=== PATIENT | male | born 1940 | race Caucasian/White ===

== ENCOUNTER 2016-09-24 16:35 | Emergency (ER) | payer MEDICARE, OTHER ==
[2016-09-24 16:45] VITALS: BP 134/70; PULSE 83; TEMP 97.7; BMI 22.8
--- NOTE | 2016-09-24 19:23 | PDOC ---
History of Present Illness - General Chief Complaint: Pain, Acute Stated Complaint: LT LEG PAIN Time Seen by Provider: 09/24/16 17:10 History Source: Patient Exam Limitations: No Limitations - History of Present Illness Initial Comments: 09/24/16 19:18 RIGHT THIGH PAIN POST FALL 2 WEEKS AGO Occurred: reports: last week Lower Extremity Pain Location: left: leg Past History - Past Medical History Allergies/Adverse Reactions: Allergies Allergy/AdvReac Type Severity Reaction Status Date / Time No Known Allergies Allergy Verified 09/24/16 16:46 Home Medications: Ambulatory Orders Atorvastatin Ca [Lipitor] 10 mg PO HS #0 tablet 07/10/12 Lisinopril [Prinivil] 20 mg PO HS #0 tablet 07/10/12 Cefpodoxime Proxetil [Vantin] 200 mg PO BID #14 tablet 06/14/13 Metoprolol Tartrate [Lopressor -] 50 mg PO BID 06/14/13 Phenazopyridine HCl [Pyridium] 100 mg PO TID #6 tablet 06/14/13 Silodosin [Rapaflo] 8 mg PO 06/14/13 Tamsulosin HCl 0.4 mg PO DAILY 06/14/13 Warfarin Na [Coumadin] 4 mg PO 06/14/13 Anemia: No Asthma: No Cancer: No Cardiac Disorders: Yes (ATRIAL FIBRILLATION, DIFIB) CVA: No COPD: No CHF: No Dementia: No Diabetes: No GI Disorders: No Disorders: No HTN: No Hypercholesterolemia: No Liver Disease: No Seizures: No Thyroid Disease: No - Surgical History Abdominal Surgery: No Appendectomy: No Cardiac Surgery: Yes (ABLASION) Cholecystectomy: No Lung Surgery: No Neurologic Surgery: No Orthopedic Surgery: Yes (REPAIRS OF RT 3RD/4TH FINGERS) - Psycho/Social/Smoking Cessation Hx Suicidal Ideation: No Smoking History: Never smoked Have you smoked in the past 12 months: No Hx Alcohol Use: Yes (OCCASIONALLY) Drug/Substance Use Hx: No Substance Use Type: None Hx Substance Use Treatment: No Review of Systems - Review of Systems Constitutional: No: Symptoms Reported, Chills, Fever, Malaise HEENTM: No: Symptoms Reported Respiratory: No: Symptoms reported, Cough Cardiac (ROS): No: Symptoms Reported ABD/GI: No: Symptoms Reported Musculoskeletal: Yes: Other (from HIP AND KNEE, NO TENDERNESS; TENDER MID THIGH) . No: Joint Pain, Joint Swelling *Physical Exam - Vital Signs Last Vital Signs Temp Pulse Resp BP Pulse Ox 97.7 F 83 18 134/70 96 09/24/16 16:42 09/24/16 16:42 09/24/16 16:42 09/24/16 16:42 09/24/16 16:42 - Physical Exam General Appearance: Yes: Appropriately Dressed. No: Apparent Distress HEENT: positive: TMs Normal, Pharynx Normal Neck: positive: Supple. negative: Tender, Rigid, Lymphadenopathy (R), Lymphadenopathy (L) Respiratory/Chest: positive: Lungs Clear Musculoskeletal: positive: Other (TENDER TO MID THIGH; NO REDNESS; ) Integumentary: negative: Erythema Neurologic: positive: Fully Oriented, Alert ED Treatment Course - RADIOLOGY Radiology Studies Ordered: Category Date Time Status FEMUR-LEFT [RAD] Stat Radiology 09/24/16 17:24 Taken DUPLEX VASCUL US-1 LEG [US] Stat Ultrasound 09/24/16 17:24 Taken Medical Decision Making - Medical Decision Making 09/24/16 19:22 XRAY/ US= NEGATIVE; WILL TX WITH SHORT COURSE 375 N[address]ROSYN; FOLLOW UP 1 WEEK *DC/Admit/Observation/Transfer Diagnosis at time of Disposition: Leg pain, central Qualifiers: Laterality: left Qualified Code(s): M79.605 - Pain in left leg - Discharge Dispostion Disposition: HOME Condition at time of disposition: Worsened Admit: No - Patient Instructions Additional Instructions: PLEASE SEE DR LLOYD 1 WEEK IF NO BETTER
--- NOTE | 2016-09-25 09:08 | PDOC ---
Patient Follow-up (Call Back) - Post ED Follow - Up Disposition at time of original discharge: HOME Reason for Call Back: Radiology (Received call from Dr. Cordova that Pelvis/L femur imaging from 09/24 shows subcapital femur fracture. Pt was discharged with normal imaging. Reached patient directly, made aware of radiology finding: told not to apply weight to affected leg, to return to ER/hospital for likely admission/surgery. Told to call 911 if he needs assistance getting here while non weight bearing. Pt understands urgency and will return to hospital.)
== END 2016-09-24 19:36 | disposition home or self-care (01) ==
LOC: JERFT 16:35
DX: S72.012A Unspecified intracapsular fracture of left femur, initial encounter for closed fracture (principal); W19.XXXA Unspecified fall, initial encounter; Y93.89 Activity, other specified; Y92.89 Other specified places as the place of occurrence of the external cause; I48.91 Unspecified atrial fibrillation; Z79.01 Long term (current) use of anticoagulants
CPT/HCPCS: 73552-TC-LT; 93971-TC; 99281-25

== ENCOUNTER 2016-09-25 10:05 | Inpatient (IN) | payer MEDICARE, OTHER ==
--- NOTE | 2016-09-25 10:52 | PDOC ---
History of Present Illness <Jas Bower - Last Filed: 09/25/16 11:24> - General History Source: Patient Exam Limitations: No Limitations - History of Present Illness Initial Comments: 09/25/16 10:57 76 year old male with pmhx of ablation who presents to the ED with left hip pain s/p fall 2 weeks ago. Patient was seen in [facility] yesterday and was discharged. Patient was contacted today after abnormal XRAY findings. Patient reports pain to the left hip and knee when he puts weight on that leg. <Randi Nolan - Last Filed: 09/25/16 11:40> - General Chief Complaint: Injury Stated Complaint: LT HIP PAIN Time Seen by Provider: 09/25/16 10:23 Past History - Past Medical History Anemia: No Asthma: No Cancer: No Cardiac Disorders: Yes (ATRIAL FIBRILLATION, DIFIB) CVA: No COPD: No CHF: No Dementia: No Diabetes: No GI Disorders: No Disorders: No HTN: No Hypercholesterolemia: No Liver Disease: No Seizures: No Thyroid Disease: No Other medical history: cardioversion - Surgical History Abdominal Surgery: No Appendectomy: No Cardiac Surgery: Yes (ABLAtION) Cholecystectomy: No Lung Surgery: No Neurologic Surgery: No Orthopedic Surgery: Yes (REPAIRS OF RT 3RD/4TH FINGERS) - Psycho/Social/Smoking Cessation Hx Anxiety: No Suicidal Ideation: No Smoking History: Never smoked Have you smoked in the past 12 months: No Information on smoking cessation initiated: No Hx Alcohol Use: No Drug/Substance Use Hx: No Substance Use Type: None Hx Substance Use Treatment: No <Jas Bower - Last Filed: 09/25/16 11:24> <Randi Nolan - Last Filed: 09/25/16 11:40> - Past Medical History Allergies/Adverse Reactions: Allergies Allergy/AdvReac Type Severity Reaction Status Date / Time No Known Allergies Allergy Verified 09/25/16 10:08 Home Medications: Ambulatory Orders NK [No Known Home Medication] 09/25/16 Review of Systems - Review of Systems Able to Perform ROS?: Yes Comments:: 09/25/16 10:57 General: Absent: fever, chills Musculoskeletal: left hip pain, left knee pain <Randi Nolan - Last Filed: 09/25/16 11:40> *Physical Exam - Vital Signs Last Vital Signs Temp Pulse Resp BP Pulse Ox 98.6 F 72 18 133/75 100 09/25/16 10:09 09/25/16 10:09 09/25/16 10:09 09/25/16 10:09 09/25/16 10:09 - Physical Exam General Appearance: Yes: Nourished, Appropriately Dressed. No: Apparent Distress HEENT: positive: EOMI, LENARD, Normal ENT Inspection Neck: positive: Supple. negative: Tender Respiratory/Chest: positive: Lungs Clear, Normal Breath Sounds. negative: Chest Tender, Respiratory Distress Cardiovascular: positive: Regular Rhythm, Regular Rate Gastrointestinal/Abdominal: positive: Normal Bowel Sounds, Soft. negative: Tender Musculoskeletal: positive: Normal Inspection. negative: CVA Tenderness, Vertebral Tenderness Extremity: positive: Normal Capillary Refill, Normal Inspection, Other (TENDER LT HIP (ROM NOT EXAMINED DUE TO DX ) Integumentary: positive: Normal Color. negative: Rash Neurologic: positive: Fully Oriented, Alert, Normal Mood/Affect, Normal Response , Motor Strength 5/5 <Jas Bower - Last Filed: 09/25/16 11:24> - Vital Signs Last Vital Signs Temp Pulse Resp BP Pulse Ox 98.6 F 72 18 133/75 100 09/25/16 10:09 09/25/16 10:09 09/25/16 10:09 09/25/16 10:09 09/25/16 10:09 <Randi Nolan - Last Filed: 09/25/16 11:40> Heart Score/ECG Review #1 09/25/16 11:38 ECG was reviewed by Dr. Arias Impression: normal sinus rhythm left aaxis deviation incomplete right bundle branch block septal infarct vent rate: 72 bpm <Randi Nolan - Last Filed: 09/25/16 11:40> ED Treatment Course - LABORATORY CBC & Chemistry Diagram: 09/25/16 11:15 09/25/16 10:49 <Jas Bower - Last Filed: 09/25/16 11:24> - LABORATORY CBC & Chemistry Diagram: 09/25/16 11:15 09/25/16 10:49 - RADIOLOGY Radiology Studies Ordered: 09/25/16 11:27 TYPE/EXAM: RAD/FEMUR-LEFT AP of the pelvis. 4 views of the left femur. Left transverse, impacted subcapital fracture of the left femoral neck with disruption of the medial, lateral cortex is seen. The left femoral head maintains normal relationship to the acetabulum. Osteoarthritis of the left knee with narrowing of the medial, lateral joint compartments. Impression. Transverse impacted subcapital left femoral neck fracture with disruption of the medial and lateral cortex. Findings were discussed with the ED department September 25, 2016 at 9:00 AM <Randi Nolan - Last Filed: 09/25/16 11:40> Medical Decision Making - Medical Decision Making 09/25/16 10:52 A call was placed to Dr. Carr at her office. Awaiting a call back. 09/25/16 11:00 A call was placed to Dr. Brown and case was discussed. Patient will have surgery tomorrow as per Dr. Brown. 09/25/16 11:18 A second call was placed to Dr. Carr at her office. Awaiting a call back. 09/25/16 11:[address] Carr, who accepts admission. <Randi Nolan - Last Filed: 09/25/16 11:40> *DC/Admit/Observation/Transfer - Discharge Dispostion Admit: Yes <Jas Bower - Last Filed: 09/25/16 11:24> <Randi Nolan - Last Filed: 09/25/16 11:40> Diagnosis at time of Disposition: Hip fracture Qualifiers: Encounter type: initial encounter Fracture type: closed Laterality: left Qualified Code(s): S72.002A - Fracture of unspecified part of neck of left femur , initial encounter for closed fracture - Discharge Dispostion Condition at time of disposition: Good - Referrals Referrals: Sachin Vega [Primary Care Provider] -
[2016-09-25 11:25] LABS: MCHC 33.8 g/dl (32.0-35.9); MEAN CELL VOLUME 88.7 fl (80-96); MEAN PLT VOLUME 9.3 fl (7.5-11.1); PLATELET COUNT 186 K/MM3 (134-434); RDW 13.2 % (11.9-15.9); WHITE BLOOD COUNT 6.9 K/mm3 (4.0-10.0)
--- NOTE | 2016-09-25 11:48 | EKG ---
Test Reason : Blood Pressure : / mmHG Vent. Rate : 072 BPM Atrial Rate : 072 BPM P-R Int : 150 ms QRS Dur : 102 ms QT Int : 388 ms P-R-T Axes : 026 -46 000 degrees QTc Int : 424 ms BASELINE ARTIFACT NORMAL SINUS RHYTHM LEFT AXIS DEVIATION ABNORMAL ECG WHEN COMPARED WITH ECG OF 10-JUL-2012 09:02, COMPARED TO EKG NO SIGNIFICANT CHANGE IS FOUND Confirmed by KRISH MOSELEY MD ([id number]) on 09/25/2016 11:48:23 AM Referred By: Confirmed By:KRISH MOSELEY MD
[2016-09-25 11:52] LABS: INR 1.11 (0.82-1.09); PROTHROMBIN TIME (PATIENT) 12.2 SEC (9.98-11.88)
[2016-09-25 11:54] LABS: ACTIVATED PTT 30.6 SECONDS (26.9-34.4)
[2016-09-25 11:59] LABS: ALBUMIN 3.6 g/dl (3.4-5.0); ANION GAP 8 (8-16); CALCIUM 8.5 mg/dL (8.5-10.1); CO2 26 mmol/L (21-32); CREATININE 0.9 mg/dL (0.7-1.3); GLUCOSE,RANDOM 88 mg/dL (74-106); SGOT/AST 14 U/L (15-37); SGPT/ALT 21 U/L (12-78)
[2016-09-25 12:00] LABS: ALK PHOS 157 U/L (45-117); BILIRUBIN,TOTAL 0.4 mg/dL (0.2-1.0)
[2016-09-25 12:06] VITALS: BMI 23.3
--- NOTE | 2016-09-25 12:41 | CONSULT ---
Consult - text type - Consultation Consultation Note: FULL CONSULT DICTATED IMP: LEFT ND FEMORAL NECK FX PLAN: CANNULATED SCREWS LEFT HIP TOMORROW
[2016-09-25] MEDS: SODIUM CHLORIDE 1,000 ML IV SCH (13:51)
[2016-09-25] MEDS ORDERED: HYDROmorphone HCL CARPU-JECT 1 MG/1 ML DISP.SYRIN IVPB PRN (14:06)
--- NOTE | 2016-09-25 14:08 | HP ---
Admitting History and Physical - Primary Care Physician PCP: Michoacano Carr - Admission Chief Complaint: left hip pain History of Present Illness: 76 year old male with pmhx of ablation who presents to the ED with left hip pain s/p fall 2 weeks ago. Patient was seen in [facility] yesterday and was discharged. Patient was contacted today after abnormal XRAY findings. Patient reports pain to the left hip and knee when he puts weight on that leg. - Past Medical History Cardiovascular: Yes: AFIB - Smoking History Smoking history: Never smoked Have you smoked in the past 12 months: No - Alcohol/Substance Use Hx Alcohol Use: No Home Medications - Allergies Allergies/Adverse Reactions: Allergies Allergy/AdvReac Type Severity Reaction Status Date / Time No Known Allergies Allergy Verified 09/25/16 10:08 - Home Medications Home Medications: Ambulatory Orders NK [No Known Home Medication] 09/25/16 Physical Examination Vital Signs: Vital Signs Temperature 98.1 F 09/25/16 13:23 Pulse Rate 69 09/25/16 13:23 Respiratory Rate 20 09/25/16 13:23 Blood Pressure 134/62 09/25/16 13:23 O2 Sat by Pulse Oximetry (%) 95 09/25/16 12:00 Constitutional: Yes: No Distress HENT: Yes: Atraumatic Neck: Yes: Supple Cardiovascular: Yes: Regular Rate and Rhythm Respiratory: Yes: CTA Bilaterally Gastrointestinal: Yes: Normal Bowel Sounds Extremities: Yes: WNL Neurological: Yes: Alert, Oriented Problem List - Problems (1) Hip fracture Code(s): S72.009A - FRACTURE OF UNSP PART OF NECK OF UNSP FEMUR, INIT Qualifiers: Encounter type: initial encounter Fracture type: closed Laterality : left Qualified Code(s): S72.002A - Fracture of unspecified part of neck of left femur, initial encounter for closed fracture (2) Leg pain, central Code(s): M79.606 - PAIN IN LEG, UNSPECIFIED Assessment/Plan Laboratory Tests 09/25/16 09/25/16 09/25/16 10:49 10:49 11:15 WBC 6.9 RBC 4.74 Hgb 14.2 D Hct 42.1 MCV 88.7 MCHC 33.8 RDW 13.2 Plt Count 186 MPV 9.3 INR PTT (Actin FS) Sodium 138 Potassium 4.0 Chloride 104 Carbon Dioxide 26 Anion Gap 8 BUN 16 Creatinine 0.9 Creat Clearance w eGFR > 60 Random Glucose 88 D Calcium 8.5 Total Bilirubin 0.4 AST 14 L D ALT 21 D Alkaline Phosphatase 157 H D Total Protein 7.0 Albumin 3.6 Blood Type A POSITIVE Antibody Screen Negative 09/25/16 11:15 WBC RBC Hgb Hct MCV MCHC RDW Plt Count MPV INR 1.11 D PTT (Actin FS) 30.6 Sodium Potassium Chloride Carbon Dioxide Anion Gap BUN Creatinine Creat Clearance w eGFR Random Glucose Calcium Total Bilirubin AST ALT Alkaline Phosphatase Total Protein Albumin Blood Type Antibody Screen Active Medications Generic Name Dose Route Start Last Admin Trade Name Freq PRN Reason Stop Dose Admin Heparin Sodium (Porcine) 5,000 unit 09/25/16 22:00 Heparin - SQ BID FELECIA Hydromorphone HCl 1 mg 09/25/16 14:06 09/25/16 14:52 Dilaudid Injection - IVPB 1 mg Q3H PRN Administration PAIN Sodium Chloride 1,000 mls @ 125 mls/hr 09/25/16 11:00 09/25/16 13:51 Normal Saline - IV Not Given ASDIR FELECIA 1.left hip fracture for OR in am cardiac clearance prn pain meds DVT PPX
--- NOTE | 2016-09-25 18:07 | CONS ---
DATE OF CONSULTATION: 09/25/2016 ORTHOPEDIC EMERGENCY ROOM CONSULTATION ([facility]) HISTORY OF PRESENT ILLNESS: Patient is a 76-year-old male status post fall 2 weeks ago complaining of persistent pain in his left hip. He was originally seen as a discharge, and now comes back with worsening pain in his left hip. No new fall or trauma. PHYSICAL EXAMINATION: Patient has equal leg length, has pain with internal-external rotation of his hip. No point tenderness pubis, ileum, SI joint, sacrum, ischium, or greater trochanter. Good range of motion in the ankle and toes. Neurovascularly intact. Calf is soft, nontender. X-rays show a nondisplaced fracture of the left femoral neck. IMPRESSION: Left femoral neck nondisplaced fracture 2 weeks ago with worsening pain. Risks, benefits, and alternatives discussed with the patient and with in great detail. Patient will be admitted to the hospital and will be booked for a left hip, cannulated screws under fluoroscopic guidance tomorrow. Again, risks, benefits, and alternatives discussed with patient in great detail, possibilities of avascular necrosis is always present with femoral neck fracture. Patient also told that walking on it without having surgery can precipitate a displaced fracture which would then a kristen-arthroplasty. Patient has agreed to go forward with procedure. He will be booked tomorrow. We will get him medically optimized today prior to the surgery. FRANKIE LLOYD M.D. [id number]
--- NOTE | 2016-09-25 19:26 | CON.CARD ---
Consult Reason for Consultation:: preop clearence - History of Present Illness History of Present Illness: 76 year old male with pmhx of ablation who presents to the ED with left hip pain s/p fall 2 weeks ago. Patient was seen in [facility] yesterday and was discharged. Patient was contacted today after abnormal XRAY findings. Patient reports pain to the left hip and knee when he puts weight on that leg. PMHx ablation rx for AF 05/2013 ("nonobstructive" coronary arteries), HTN, - Past Medical History Cardio/Vascular: Yes: AFIB (s/p ablation) - Alcohol/Substance Use Hx Alcohol Use: No - Smoking History Smoking history: Never smoked Have you smoked in the past 12 months: No Home Medications - Allergies Allergies/Adverse Reactions: Allergies Allergy/AdvReac Type Severity Reaction Status Date / Time No Known Allergies Allergy Verified 09/25/16 10:08 - Home Medications Home Medications: Ambulatory Orders NK [No Known Home Medication] 09/25/16 Review of Systems - Review of Systems Constitutional: reports: No Symptoms Eyes: reports: No Symptoms HENT: reports: No Symptoms Neck: reports: No Symptoms Cardiovascular: reports: No Symptoms Gastrointestinal: reports: No Symptoms Genitourinary: reports: No Symptoms Breasts: reports: No Symptoms Reported Musculoskeletal: reports: No Symptoms Integumentary: reports: No Symptoms Neurological: reports: No Symptoms Endocrine: reports: No Symptoms Hematology/Lymphatic: reports: No Symptoms Psychiatric: reports: No Symptoms Vital Signs: Vital Signs Temperature 98.1 F 09/25/16 13:23 Pulse Rate 69 09/25/16 13:23 Respiratory Rate 20 09/25/16 13:23 Blood Pressure 134/62 09/25/16 13:23 O2 Sat by Pulse Oximetry (%) 95 09/25/16 12:00 Constitutional: Yes: Well Nourished, No Distress, Calm Eyes: Yes: WNL, Conjunctiva Clear, EOM Intact HENT: Yes: WNL, Atraumatic, Normocephalic Neck: Yes: WNL, Supple, Trachea Midline Respiratory: Yes: WNL, Regular, CTA Bilaterally Gastrointestinal: Yes: WNL, Normal Bowel Sounds Renal/: Yes: WNL Cardiovascular: Yes: WNL, Regular Rate and Rhythm Musculoskeletal: Yes: WNL Extremities: Yes: WNL Integumentary: Yes: WNL Neurological: Yes: WNL, Alert, Oriented ...Motor Strength: WNL Psychiatric: Yes: WNL, Alert, Oriented - Other Data Labs, Other Data: INR, PTT INR 1.11 (0.82-1.09) D 09/25/16 11:15 Imaging - Results EKG: Image Reviewed (sr LDEA) Problem List - Problems (1) Hip fracture Code(s): S72.009A - FRACTURE OF UNSP PART OF NECK OF UNSP FEMUR, INIT Qualifiers: Encounter type: initial encounter Fracture type: closed Laterality : left Qualified Code(s): S72.002A - Fracture of unspecified part of neck of left femur, initial encounter for closed fracture (2) Leg pain, central Code(s): M79.606 - PAIN IN LEG, UNSPECIFIED Assessment/Plan hip fx ? h/o of af ablation EKG LDEA Plan; ECHO
[2016-09-25] MEDS: HEPARIN NA (PORCINE) 5,000 UNITS/ML 1ML VIAL SQ SCH (21:06)
[2016-09-26] MEDS: SODIUM CHLORIDE 1,000 ML IV SCH (00:19)
[2016-09-26 01:41] LABS: URINE APPEARANCE CLEAR; URINE BILIRUBIN NEGATIVE (NEGATIVE); URINE BLOOD NEGATIVE (NEGATIVE); URINE COLOR STRAW; URINE GLUCOSE (UA) NEGATIVE (NEGATIVE); URINE KETONE NEGATIVE (NEGATIVE); URINE LEUK ESTERASE NEGATIVE (NEGATIVE); URINE NITRITE NEGATIVE (NEGATIVE); URINE PROTEIN NEGATIVE (NEGATIVE); URINE UROBILINOGEN NEGATIVE E.U./dl (0.2-1.0)
[2016-09-26] MEDS: HEPARIN NA (PORCINE) 5,000 UNITS/ML 1ML VIAL SQ SCH (09:18)
[2016-09-26] MEDS ORDERED: PROPOFOL 20 ML ONE ×2 (14:33→14:34)
[2016-09-26] MEDS ORDERED: LIDOCAINE HCL/PF 2% SDV 5ML VIAL ONE (14:35)
[2016-09-26] MEDS ORDERED: SUCCINYLCHOLINE CHLORIDE 200 MG/10 ML VIAL ONE (14:37)
[2016-09-26] MEDS ORDERED: HYDROmorphone HCL CARPU-JECT 1 MG/1 ML DISP.SYRIN IVPUSH PRN ×2 (15:00→16:40)
[2016-09-26] MEDS ORDERED: ONDANSETRON 4 MG/2 ML VIAL IVPUSH PRN ×2 (15:00→16:40)
[2016-09-26] MEDS ORDERED: ACETAMINOPHEN INJECTION 100 ML IVPB ONE (15:05)
[2016-09-26] MEDS ORDERED: ceFAZolin SODIUM 1 GM VIAL IVPB ONE (15:20)
[2016-09-26] MEDS ORDERED: HYDROmorphone HCL/PF 1 MG/ML VIAL (FOR PYXIS CHARGING ONLY) ONE (15:35)
--- NOTE | 2016-09-26 16:12 | OP ---
Operative Note - Note: Operative Date: 09/26/16 Pre-Operative Diagnosis: left femoral neck hip fracture Operation: cannulated screws left hip Post-Operative Diagnosis: Same as Pre-op Surgeon: Wali Brown Anesthesia: General Operative Report Dictated: Yes
[2016-09-26] MEDS ORDERED: LACTATED RINGERS SOLUTION 1,000 ML IV SCH (16:15)
[2016-09-26] MEDS ORDERED: HYDROmorphone HCL CARPU-JECT 1 MG/1 ML DISP.SYRIN IVPB PRN (16:40)
[2016-09-26] MEDS: LACTATED RINGERS SOLUTION 1,000 ML IV SCH (17:52)
[2016-09-26] MEDS ORDERED: CEFAZOLIN (PRE-DOCKED) 50 ML IVPB SCH ×2 (18:00)
--- NOTE | 2016-09-26 18:44 | PN ---
Progress Note, Physician Chief Complaint: Pt underwent left hip surgical repair today. History of Present Illness: 76 yr old man with PMHx ablation rx for AF 05/2013 ("nonobstructive" coronary arteries), HTN, who now is admitted for left hip pain from fracture; after a slip and fall (denies syncope) 2 weeks ago; scheduled for surgery. Pt is physically active, doing moderately long walks and calisthenics nearly every day, all year round. No hx CHF or IL.l - Current Medication List Current Medications: Active Medications Aspirin (Asa -) 325 mg PO DAILY FELECIA Hydromorphone HCl (Dilaudid Injection -) 1 mg IVPB Q3H PRN PRN Reason: PAIN Hydromorphone HCl (Dilaudid Injection -) 0.5 mg IVPUSH [id number] PRN PRN Reason: PAIN Stop: 09/29/16 16:41 Lactated Ringer's (Lactated Ringers Solution) 1,000 mls @ 75 mls/hr IV ASDIR FELECIA Last Admin: 09/26/16 17:52 Dose: 75 mls/hr Cefazolin Sodium (Ancef 1gm Ivpb (Pre-Docked)) 50 mls @ 100 mls/hr IVPB Q8H FELECIA Stop: 09/27/16 07:29 Ondansetron HCl (Zofran Injection) 4 mg IVPUSH Q6H PRN PRN Reason: NAUSEA AND/OR VOMITING Stop: 09/26/16 21:01 - Objective Vital Signs: Vital Signs Temperature 97.7 F 09/26/16 17:47 Pulse Rate 62 09/26/16 17:47 Respiratory Rate 20 09/26/16 17:47 Blood Pressure 145/86 09/26/16 17:47 O2 Sat by Pulse Oximetry (%) 99 09/26/16 17:47 Constitutional: Yes: No Distress Labs: INR, PTT INR 1.11 (0.82-1.09) D 09/25/16 11:15 Problem List - Problems (1) Hip fracture Assessment/Plan: pain management. F/u with surgeon. Physical rehabilitation. Code(s): S72.009A - FRACTURE OF UNSP PART OF NECK OF UNSP FEMUR, INIT Qualifiers: Encounter type: initial encounter Fracture type: closed Laterality : left Qualified Code(s): S72.002A - Fracture of unspecified part of neck of left femur, initial encounter for closed fracture (2) HTN (hypertension) Assessment/Plan: Pt had been on metoprolol and lisinopril, but last year self-discontinued all medications (including pravastatin and rivaroxaban), feeling the potential side- effects outweighed the benefits despite being told of the risks in not taking them (including CVA and IL). Code(s): I10 - ESSENTIAL (PRIMARY) HYPERTENSION (3) Paroxysmal atrial fibrillation Assessment/Plan: Will discontinue aspirin (pt had been on rivaroxaban, but has been noncompliant to it, feeling its risks outweigh the benefits). I will stop aspirin 325 mg (not effective as anticoagulant for AF, and higher dose risks post-op bleed; no hx IL or CVA; non-smoker; age > 70 yrs). Code(s): I48.0 - PAROXYSMAL ATRIAL FIBRILLATION
--- NOTE | 2016-09-26 19:35 | PN ---
Progress Note, Physician History of Present Illness: doing well - Current Medication List Current Medications: Active Medications Aspirin (Asa -) 325 mg PO DAILY FELECIA Hydromorphone HCl (Dilaudid Injection -) 1 mg IVPB Q3H PRN PRN Reason: PAIN Hydromorphone HCl (Dilaudid Injection -) 0.5 mg IVPUSH [id number] PRN PRN Reason: PAIN Stop: 09/29/16 16:41 Lactated Ringer's (Lactated Ringers Solution) 1,000 mls @ 75 mls/hr IV ASDIR FELECIA Last Admin: 09/26/16 17:52 Dose: 75 mls/hr Cefazolin Sodium (Ancef 1gm Ivpb (Pre-Docked)) 50 mls @ 100 mls/hr IVPB Q8H FELECIA Stop: 09/27/16 07:29 Ondansetron HCl (Zofran Injection) 4 mg IVPUSH Q6H PRN PRN Reason: NAUSEA AND/OR VOMITING Stop: 09/26/16 21:01 - Objective Vital Signs: Vital Signs Temperature 98.3 F 09/26/16 19:19 Pulse Rate 70 09/26/16 19:19 Respiratory Rate 20 09/26/16 19:19 Blood Pressure 128/70 09/26/16 19:19 O2 Sat by Pulse Oximetry (%) 99 09/26/16 17:47 Constitutional: Yes: No Distress HENT: Yes: Atraumatic Neck: Yes: Supple Cardiovascular: Yes: Regular Rate and Rhythm Respiratory: Yes: CTA Bilaterally Gastrointestinal: Yes: Normal Bowel Sounds Extremities: Yes: WNL Neurological: Yes: Alert, Oriented Labs: INR, PTT INR 1.11 (0.82-1.09) D 09/25/16 11:15 Problem List - Problems (1) Hip fracture Code(s): S72.009A - FRACTURE OF UNSP PART OF NECK OF UNSP FEMUR, INIT Qualifiers: Encounter type: initial encounter Fracture type: closed Laterality : left Qualified Code(s): S72.002A - Fracture of unspecified part of neck of left femur, initial encounter for closed fracture (2) Leg pain, central Code(s): M79.606 - PAIN IN LEG, UNSPECIFIED Assessment/Plan 1.left hip fracture s/p surgery prn pain meds pt eval
--- NOTE | 2016-09-26 20:29 | OP ---
DATE OF OPERATION: 09/26/2016 PREOPERATIVE DIAGNOSIS: Left femoral neck fracture. POSTOPERATIVE DIAGNOSIS: Left femoral neck fracture. PROCEDURE: Cannulated screws, left femoral neck. SURGICAL ATTENDING: Wali Brown MD ANESTHESIA: LMA. CLOSURE: The 6.5 Victor cannulated screws, 2-0 Vicryl subcutaneous, 4-0 Monocryl for skin, with skin glue. ESTIMATED BLOOD LOSS: Negligible. COMPLICATIONS: None. CONDITION: To recovery room in stable condition. DESCRIPTION OF OPERATIVE PROCEDURE: Patient taken to the operating room on September 26, 2016. LMA anesthesia was administered by the anesthesiologist. IV Kefzol given prophylactically prior to case. Patient was placed on the fracture table with all prominences well padded. The left hip area was prepped and draped in the usual sterile fashion. A 1-inch incision over the lateral proximal thigh was incised. Hemostasis achieved with Bovie cautery. Sharp dissection was carried through the fascia. Three guidewires from the 6.5 cannulated screw set were drilled in a parallel fashion and in an L formation, 1 anterior, 2 posterior, 2 inferior, and 1 superior. Confirmation of excellent position was confirmed in the AP and lateral plane by use of the image intensifier. The wires were depth gauged and then they were screwed with the appropriate size 6.5 cancellous lag screws, achieving excellent fixation and compression of the fracture. The guidewires were removed. X-rays around the clock and with fluoroscopy revealed excellent position with no penetration of the hip joint. The wound was irrigated. The fascia was closed with 2-0 Vicryl, as was the subcutaneous, 4-0 Monocryl subcuticular for skin, with skin glue. A sterile Aquacel dressing was applied. Patient awakened from anesthesia, transferred to recovery room in stable condition. No complications. Estimated blood loss negligible. Walter [id number]
[2016-09-26] MEDS: CEFAZOLIN (PRE-DOCKED) 50 ML IVPB SCH (22:54)
[2016-09-27] MEDS: LACTATED RINGERS SOLUTION 1,000 ML IV SCH (06:50)
[2016-09-27] MEDS: CEFAZOLIN (PRE-DOCKED) 50 ML IVPB SCH (06:50)
[2016-09-27 08:59] VITALS: BP 138/69; PULSE 86
[2016-09-27 09:20] VITALS: TEMP 98.4
[2016-09-27] MEDS ORDERED: ASPIRIN 325 MG TABLET PO SCH ×2 (10:00)
--- NOTE | 2016-09-27 10:48 | PN ---
Progress Note (short form) - Note Progress Note: AVSS COMFORTABLE BANDAGE DRY AND INTACT NVI CALF SOFT AND NT PATIENT ABLE TO WALK WITHOUT EVEN A CANE IMP: DOING WELL PLAN: PT, DC TO HOME TODAY, F/U MY OFFICE X 10 DAYS
--- NOTE | 2016-09-27 11:14 | DS ---
Physical Examination Vital Signs: Vital Signs Temperature 98.4 F 09/27/16 09:18 Pulse Rate 86 09/27/16 09:18 Respiratory Rate 18 09/27/16 09:18 Blood Pressure 138/69 09/27/16 09:18 O2 Sat by Pulse Oximetry (%) 96 09/27/16 09:10 HENT: Yes: Atraumatic Neck: Yes: Supple Cardiovascular: Yes: Regular Rate and Rhythm Respiratory: Yes: CTA Bilaterally Gastrointestinal: Yes: Normal Bowel Sounds Edema: No Neurological: Yes: Alert, Oriented Discharge Summary Reason For Visit: FRACTURE OF HIP Current Active Problems HTN (hypertension) (Acute) Hip fracture (Acute) Paroxysmal atrial fibrillation (Acute) Condition: Good - Instructions Diet, Activity, Other Instructions: see dr brown in 10 days tylenol 650 every 6 hrs as needed for pain Referrals: Sachin Vega [Primary Care Provider] - Wali Brown MD [Staff Physician] - Disposition: VNS/HOME HEALTH CARE - Home Medications Comprehensive Discharge Medication List: Ambulatory Orders NK [No Known Home Medication] 09/25/[address] brown 10 days
--- NOTE | 2016-09-27 11:34 | PN ---
Progress Note (short form) - Note Progress Note: Anesthesia postop note 76 y/o M s/p GA for gamma nail hip POD#1, vss, aaox3, no complaints. No anesthesia complications.
--- NOTE | 2016-09-27 12:56 | PN ---
Progress Note, Physician History of Present Illness: 76 year old male with pmhx of ablation who presents to the ED with left hip pain s/p fall 2 weeks ago. Patient was seen in [facility] yesterday and was discharged. Patient was contacted today after abnormal XRAY findings. Patient reports pain to the left hip and knee when he puts weight on that leg. PMHx ablation rx for AF 05/2013 ("nonobstructive" coronary arteries), HTN, - Objective Vital Signs: Vital Signs Temperature 98.4 F 09/27/16 09:18 Pulse Rate 86 09/27/16 09:18 Respiratory Rate 18 09/27/16 09:18 Blood Pressure 138/69 09/27/16 09:18 O2 Sat by Pulse Oximetry (%) 96 09/27/16 09:10 Eyes: Yes: WNL, Conjunctiva Clear, EOM Intact HENT: Yes: WNL, Atraumatic, Normocephalic Neck: Yes: WNL, Supple, Trachea Midline Cardiovascular: Yes: WNL, Regular Rate and Rhythm Respiratory: Yes: WNL, Regular, CTA Bilaterally Gastrointestinal: Yes: WNL, Normal Bowel Sounds Genitourinary: Yes: WNL Musculoskeletal: Yes: WNL Extremities: Yes: WNL Edema: No Integumentary: Yes: WNL Neurological: Yes: WNL, Alert, Oriented ...Motor Strength: WNL Psychiatric: Yes: WNL Labs: INR, PTT INR 1.11 (0.82-1.09) D 09/25/16 11:15 Problem List - Problems (1) Hip fracture Code(s): S72.009A - FRACTURE OF UNSP PART OF NECK OF UNSP FEMUR, INIT Qualifiers: Encounter type: initial encounter Fracture type: closed Laterality : left Qualified Code(s): S72.002A - Fracture of unspecified part of neck of left femur, initial encounter for closed fracture (2) Leg pain, central Code(s): M79.606 - PAIN IN LEG, UNSPECIFIED Assessment/Plan - Problems (1) Hip fracture Assessment/Plan: pain management. F/u with surgeon. Physical rehabilitation. Code(s): S72.009A - FRACTURE OF UNSP PART OF NECK OF UNSP FEMUR, INIT Qualifiers: Encounter type: initial encounter Fracture type: closed Laterality : left Qualified Code(s): S72.002A - Fracture of unspecified part of neck of left femur, initial encounter for closed fracture (2) HTN (hypertension) Assessment/Plan: Pt had been on metoprolol and lisinopril, but last year self-discontinued all medications (including pravastatin and rivaroxaban), feeling the potential side- effects outweighed the benefits despite being told of the risks in not taking them (including CVA and FL). Code(s): I10 - ESSENTIAL (PRIMARY) HYPERTENSION (3) Paroxysmal atrial fibrillation Assessment/Plan: Will discontinue aspirin (pt had been on rivaroxaban, but has been noncompliant to it, feeling its risks outweigh the benefits). I will stop aspirin 325 mg (not effective as anticoagulant for AF, and higher dose risks post-op bleed; no hx FL or CVA; non-smoker; age > 70 yrs). Code(s): I48.0 - PAROXYSMAL ATRIAL FIBRILLATION
== END 2016-09-27 12:00 | disposition home health service (06) | DRG 482 ==
LOC: JER 10:05 → JERBED 11:25 → J6S 12:49
PROVIDERS: ADMIT Internal Medicine; ATTEND Internal Medicine
PROC: 0SSB04Z Reposition Left Hip Joint with Internal Fixation Device, Open Approach (ICD-10-PCS; principal; 2016-09-26 14:00)
DX: S72.002A Fracture of unspecified part of neck of left femur, initial encounter for closed fracture (principal); I48.0 Paroxysmal atrial fibrillation; I10 Essential (primary) hypertension; M79.606 Pain in leg, unspecified; W19.XXXA Unspecified fall, initial encounter; Y93.9 Activity, unspecified; Y92.89 Other specified places as the place of occurrence of the external cause; Y99.9 Unspecified external cause status
CPT/HCPCS: 36415; 76000-TC; 80053; 81003; 85027; 85610; 85730; 86850; 86900; 86901; 93005; 93010; 93306-TC; 94010; 94760; 97116-GP; 97161-GP; 99283-25

== ENCOUNTER 2017-01-24 03:37 | Emergency (ER) | payer OTHER ==
[2017-01-24 04:03] VITALS: BMI 22.8
--- NOTE | 2017-01-24 04:04 | PDOC ---
History of Present Illness - General History Source: Patient <ClarissaMarcin - Last Filed: 01/24/17 04:11> - General History Source: Patient - History of Present Illness Initial Comments: 01/24/17 04:07 The patient is a 76-year-old male, with a significant past medical history of a- fib, who presents to the ED with urinary retention. Patient states that he was able to dribble here and there yesterday but today at around midnight he was unable to urinate. The patient denies any dysuria or hematuria. <Gabriela Dumont - Last Filed: 01/24/17 04:14> - General Chief Complaint: Urinary Problem Stated Complaint: URINARY PROBLEM Time Seen by Provider: 01/24/17 04:00 Past History - Past Medical History Anemia: No Asthma: No Cancer: No Cardiac Disorders: Yes (ATRIAL FIBRILLATION, DIFIB) CVA: No COPD: No CHF: No Dementia: No Diabetes: No GI Disorders: No Disorders: No HTN: No Hypercholesterolemia: No Liver Disease: No Seizures: No Thyroid Disease: No - Surgical History Abdominal Surgery: No Appendectomy: No Cardiac Surgery: Yes (ABLATION) Cholecystectomy: No Lung Surgery: No Neurologic Surgery: No Orthopedic Surgery: Yes (REPAIRS OF RT 3RD/4TH FINGERS) - Psycho/Social/Smoking Cessation Hx Anxiety: No Suicidal Ideation: No Smoking History: Never smoked Have you smoked in the past 12 months: No Information on smoking cessation initiated: No Hx Alcohol Use: No Drug/Substance Use Hx: No Substance Use Type: None Hx Substance Use Treatment: No <Marcin Romo - Last Filed: 01/24/17 04:11> <Gabriela Dumont - Last Filed: 01/24/17 04:14> - Past Medical History Allergies/Adverse Reactions: Allergies Allergy/AdvReac Type Severity Reaction Status Date / Time No Known Allergies Allergy Verified 01/24/17 03:54 Home Medications: Ambulatory Orders Levofloxacin [Levaquin -] 500 mg PO DAILY #4 tablet 01/24/17 Review of Systems - Review of Systems Able to Perform ROS?: Yes Comments:: 01/24/17 04:09 CONSTITUTIONAL: Absent: fever, no chills, no fatigue EYES: Absent: visual changes ENT: Absent: ear pain, no sore throat CARDIOVASCULAR: Absent: chest pain, no palpitations RESPIRATORY: Absent: cough, no SOB GI: Absent: abdominal pain, no nausea, no vomiting, no constipation, no diarrhea GENITOURINARY: Present: urinary retention Absent: dysuria, no frequency, no hematuria MUSKULOSKELETAL: Absent: back pain, no arthralgia, no myalgia SKIN: Absent: rash NEURO: Absent: headache <Gabriela Dumont - Last Filed: 01/24/17 04:14> *Physical Exam - Vital Signs Last Vital Signs Temp Pulse Resp BP Pulse Ox 98.4 F 94 H 18 154/79 100 01/24/17 03:52 01/24/17 03:52 01/24/17 03:52 01/24/17 03:52 01/24/17 03:52 <Marcin Romo - Last Filed: 01/24/17 04:11> - Vital Signs Last Vital Signs Temp Pulse Resp BP Pulse Ox 98.4 F 94 H 18 154/79 100 01/24/17 03:52 01/24/17 03:52 01/24/17 03:52 01/24/17 03:52 01/24/17 03:52 - Physical Exam Comments: 01/24/17 04:10 GENERAL: Well-appearing, well-nourished. +moderate distress HEENT: Normocephalic, atraumatic. PERRL, EOM intact. CARDIOVASCULAR: Normal S1, S2. Regular rate and rhythm. PULMONARY: Clear to auscultation bilaterally. ABDOMEN: Soft. +suprapubic distension and tenderness EXTREMITIES: Normal ROM in all four extremities. No gross deformities. SKIN: Warm, dry. No rash NEUROLOGICAL: No focal neurological deficits. <Gabriela Dumont - Last Filed: 01/24/17 04:14> Medical Decision Making - Medical Decision Making 01/24/17 04:12 Dr. Romo: The scribe's documentation has been prepared under my direction and personally reviewed by me in its entirery. I confirm that the note above accurately reflects all work, treatment, procedures, and medical decision making performed by me. <Marcin Romo - Last Filed: 01/24/17 04:11> *DC/Admit/Observation/Transfer - Discharge Dispostion Admit: No <Marcin Romo - Last Filed: 01/24/17 04:11> - Attestations Scribe Attestion: 01/24/17 04:11 Documentation prepared by Gabriela Dumont, acting as medical appointment clerk for Marcin Romo MD. <Gabriela Dumont - Last Filed: 01/24/17 04:14> Diagnosis at time of Disposition: Urinary retention - Discharge Dispostion Disposition: HOME Condition at time of disposition: Stable - Prescriptions Prescriptions: Levofloxacin [Levaquin -] 500 mg PO DAILY #4 tablet - Referrals Referrals: Sachin Vega [Primary Care Provider] - Braxton Isbell MD., MD [Staff Physician] - - Patient Instructions Printed Discharge Instructions: DI for Urinary Retention in Men
[2017-01-24] MEDS ORDERED: LEVOFLOXACIN 500 MG TABLET (FP) PO ONE (04:10)
[2017-01-24] MEDS ORDERED: LEVOFLOXACIN 500 MG TABLET (FP) ONE (04:13)
[2017-01-24 05:06] VITALS: BP 150/80; PULSE 89; TEMP 98.2
== END 2017-01-24 05:06 | disposition home or self-care (01) ==
LOC: JER 03:37
PROC: 0T9B70Z Drainage of Bladder with Drainage Device, Via Natural or Artificial Opening (ICD-10-PCS; principal; 2017-01-24)
DX: R33.8 Other retention of urine (principal); I48.91 Unspecified atrial fibrillation
CPT/HCPCS: 51702; 99282-25

== ENCOUNTER 2021-07-29 08:20 | Emergency (ER) | payer OTHER ==
[2021-07-29 08:30] VITALS: TEMP 98.1; BMI 23.3
[2021-07-29 10:48] LABS: EPI CELLS 4 /uL (0-25.1); HYALINE CASTS 1 /uL (0-3.1); URINE APPEARANCE TURBID; URINE BACTERIA 6221 /uL (0-1359); URINE BILIRUBIN NEGATIVE (NEGATIVE); URINE COLOR YELLOW; URINE GLUCOSE (UA) NEGATIVE (NEGATIVE); URINE KETONE NEGATIVE (NEGATIVE); URINE LEUK ESTERASE 3+ (NEGATIVE); URINE NITRITE NEGATIVE (NEGATIVE); URINE PROTEIN TRACE (NEGATIVE); URINE RBC 26 /uL (0-23.9); URINE WBC 3589 /uL (0-25.8)
[2021-07-29 12:06] VITALS: BP 115/55; PULSE 75
== END 2021-07-29 12:06 | disposition home or self-care (01) ==
LOC: JER 08:20
DX: N30.00 Acute cystitis without hematuria (principal)
CPT/HCPCS: 81003; 87086; 87186; 99283-25

== ENCOUNTER 2022-05-16 17:31 | Inpatient (IN) | payer OTHER ==
[2022-05-16 19:06] LABS: HEMATOCRIT 37.2 % (35.4-49); HEMOGLOBIN 12.3 GM/dL (11.7-16.9); MCH 30.5 pg (25.7-33.7); MCHC 33.1 g/dl (32.0-35.9); MEAN CELL VOLUME 92.1 fl (80-96); MEAN PLT VOLUME 9.1 fl (7.5-11.1); PLATELET COUNT 212 10^3/uL (134-434); RBC 4.04 M/mm3 (4.00-5.60); RDW 14.2 % (11.9-15.9)
[2022-05-16 19:07] LABS: VENOUS BASE EXCESS -1.9 mmol/L (-2-2); VENOUS O2 SATURATION 80.5 % (70-80); VENOUS PCO2 36.4 mmHg (38-52); VENOUS PH 7.406 (7.310-7.410)
[2022-05-16 19:25] LABS: WHITE BLOOD COUNT 31.8 K/mm3 (4.0-10.0)
[2022-05-16 19:29] LABS: PH,URINE 5.5 (5.0-8.0); URINE APPEARANCE CLEAR; URINE BILIRUBIN NEGATIVE (NEGATIVE); URINE COLOR YELLOW; URINE GLUCOSE (UA) NEGATIVE (NEGATIVE); URINE KETONE NEGATIVE (NEGATIVE); URINE LEUK ESTERASE NEGATIVE (NEGATIVE); URINE NITRITE NEGATIVE (NEGATIVE); URINE PROTEIN NEGATIVE (NEGATIVE)
[2022-05-16 19:33] LABS: BLOOD UREA NITROGEN 24.2 mg/dL (7-18)
[2022-05-16 19:36] LABS: CREATININE 1.3 mg/dL (0.55-1.3)
[2022-05-16 19:37] LABS: BILIRUBIN,TOTAL 0.4 mg/dL (0.2-1); TOT PROT 6.8 g/dl (6.4-8.2)
[2022-05-16 19:54] LABS: ACTIVATED PTT 28.7 SECONDS (25.2-36.5); INR 1.33 (0.83-1.09); PROTHROMBIN TIME (PATIENT) 15.3 SEC (9.7-13.0)
[2022-05-16 20:23] LABS: ANISOCYTOSIS 1+; MACROCYTOSIS 0; PLATELET ESTIMATE NORMAL
[2022-05-16] MEDS ORDERED: VANCOMYCIN 1 GM in D5W (PRE-DOCKED) 1,000 MG/250 ML IVPB ONE (21:10)
[2022-05-16] MEDS ORDERED: PIPERACILLIN/TAZOB 3.375 GM 3.375 GM in DEXTROSE 5%-WATER - 50 ML IVPB ONE (21:11)
[2022-05-16] MEDS ORDERED: PIPERACILLIN/TAZOB 3.375 GM 3.375 GM/50 ML BAG IVPB ONE (22:18)
[2022-05-16] MEDS ORDERED: VANCOMYCIN/WATER FOR INJ (PEG) 1,000 MG/200 ML BAG IVPB ONE (22:19)
[2022-05-17] MEDS: SODIUM CHLORIDE 1,000 ML IV SCH ×2 (00:51→14:11)
[2022-05-17 02:08] VITALS: BMI 26.9
[2022-05-17] MEDS: ACALABRUTINIB 100 MG PO SCH ×3 (08:17→22:06)
[2022-05-17] MEDS: INSULIN SLIDING SCALE (NOVOLOG) 1 VIAL SQ SCH ×4 (08:18→22:06)
[2022-05-17] MEDS: FINASTERIDE 5 MG TABLET (FP) PO SCH (09:21)
[2022-05-17] MEDS: TAMSULOSIN HCL 0.4 MG CAP PO SCH (09:21)
[2022-05-17] MEDS: ENOXAPARIN NA (PORCINE) 40 MG/0.4 ML DISP.SYRIN SQ SCH (09:22)
[2022-05-17 10:09] LABS: HEMOGLOBIN 12.9 GM/dL (11.7-16.9); MCH 30.9 pg (25.7-33.7); MEAN PLT VOLUME 9.2 fl (7.5-11.1); PLATELET COUNT 215 10^3/uL (134-434); RBC 4.18 M/mm3 (4.00-5.60); RDW 13.8 % (11.9-15.9)
[2022-05-17 10:15] LABS: INR 1.31 (0.83-1.09); PROTHROMBIN TIME (PATIENT) 15.1 SEC (9.7-13.0)
[2022-05-17 10:47] LABS: ANISOCYTOSIS 0; BLOOD UREA NITROGEN 19.6 mg/dL (7-18); CALCIUM 7.9 mg/dL (8.5-10.1); HELMET CELLS 0; HOWELL-JOLLY BODIES 0; MACROCYTOSIS 0; MAGNESIUM 2.2 mg/dL (1.8-2.4); OVALOCYTE 0; ROULEAU 0; SICKELED CELLS 0; TARGET CELLS 0; TEAR DROP CELLS 0; TOXIC GRANULATION 0
[2022-05-17 10:48] LABS: ALBUMIN 2.9 g/dl (3.4-5.0)
[2022-05-17 10:50] LABS: PHOSPHOROUS 2.6 mg/dL (2.5-4.9)
[2022-05-17 10:51] LABS: CREATININE 1.2 mg/dL (0.55-1.3)
[2022-05-17 10:52] LABS: BILIRUBIN,TOTAL 0.6 mg/dL (0.2-1); TOT PROT 6.9 g/dl (6.4-8.2)
[2022-05-17 11:09] LABS: WHITE BLOOD COUNT 30.6 K/mm3 (4.0-10.0)
[2022-05-17] MEDS: CEFTRIAXONE 1 GM in DEXTROSE 5%-WATER - 50 ML IVPB SCH (15:35)
[2022-05-17 23:14] VITALS: RESP 18
[2022-05-18] MEDS: INSULIN SLIDING SCALE (NOVOLOG) 1 VIAL SQ SCH ×2 (07:07→11:58)
[2022-05-18] MEDS: SODIUM CHLORIDE 1,000 ML IV SCH (07:07)
[2022-05-18] MEDS: ENOXAPARIN NA (PORCINE) 40 MG/0.4 ML DISP.SYRIN SQ SCH (09:31)
[2022-05-18] MEDS: CEFTRIAXONE 1 GM in DEXTROSE 5%-WATER - 50 ML IVPB SCH (09:31)
[2022-05-18] MEDS: ACALABRUTINIB 100 MG PO SCH (09:31)
[2022-05-18] MEDS: TAMSULOSIN HCL 0.4 MG CAP PO SCH (09:32)
[2022-05-18] MEDS: FINASTERIDE 5 MG TABLET (FP) PO SCH (09:32)
[2022-05-18 12:58] VITALS: BP 134/74; PULSE 92; TEMP 98.3
== END 2022-05-18 14:51 | disposition home or self-care (01) | DRG 690 ==
LOC: JER 17:31 → JERBED 21:11 → J8W 05-17 01:04
PROVIDERS: ADMIT Internal Medicine
DX: N39.0 Urinary tract infection, site not specified (principal); C91.10 Chronic lymphocytic leukemia of B-cell type not having achieved remission; N17.9 Acute kidney failure, unspecified; I48.91 Unspecified atrial fibrillation; N40.0 Benign prostatic hyperplasia without lower urinary tract symptoms; I12.9 Hypertensive chronic kidney disease with stage 1 through stage 4 chronic kidney disease, or unspecified chronic kidney disease; N18.9 Chronic kidney disease, unspecified
CPT/HCPCS: 0241U-QW; 36415; 71045-TC-FY; 76775-TC; 76856-TC; 80053; 81003; 82553; 82803; 82962; 83036; 83605; 83735; 84100; 84443; 85025; 85610; 85730; 86850; 86900; 86901; 87040; 87086; 93005; 93010; 97116-GP; 97161-GP; 99285-25

== ENCOUNTER 2022-07-26 18:47 | Emergency (ER) | payer OTHER ==
[2022-07-26 19:20] VITALS: BP 149/78; PULSE 86; RESP 17; TEMP 97.9; BMI 23.5
== END 2022-07-26 21:44 | disposition home or self-care (01) ==
LOC: JER 18:47
DX: T83.091A Other mechanical complication of indwelling urethral catheter, initial encounter (principal)
CPT/HCPCS: 99281-25

== ENCOUNTER 2023-11-16 17:10 | Emergency (ER) | payer OTHER ==
[2023-11-16 17:32] VITALS: BP 148/50; PULSE 89; RESP 18; TEMP 98.5; BMI 22.4
[2023-11-16 18:24] LABS: EPI CELLS 1 /uL (0-25.1); HYALINE CASTS 0 /uL (0-3.1); URINE APPEARANCE CLEAR; URINE BACTERIA 0 /uL (0-1359); URINE BILIRUBIN NEGATIVE (NEGATIVE); URINE COLOR YELLOW; URINE GLUCOSE (UA) NEGATIVE (NEGATIVE); URINE KETONE NEGATIVE (NEGATIVE); URINE LEUK ESTERASE NEGATIVE (NEGATIVE); URINE NITRITE NEGATIVE (NEGATIVE); URINE PROTEIN NEGATIVE (NEGATIVE); URINE RBC 6 /uL (0-23.9); URINE UROBILINOGEN 0.2 mg/dL (0.2-1.0); URINE WBC 1 /uL (0-25.8)
[2023-11-16 18:35] LABS: HEMATOCRIT 41.7 % (35.4-49); HEMOGLOBIN 13.9 GM/dL (11.7-16.9); MCH 29.9 pg (25.7-33.7); MCHC 33.3 g/dl (32.0-35.9); MEAN CELL VOLUME 89.9 fl (80-96); MEAN PLT VOLUME 8.6 fl (7.5-11.1); PLATELET COUNT 197 10^3/uL (134-434); RBC 4.64 M/mm3 (4.00-5.60); RDW 14.6 % (11.9-15.9)
[2023-11-16 19:03] LABS: POTASSIUM 3.8 mmol/L (3.5-5.1)
[2023-11-16 19:05] LABS: CALCIUM 8.5 mg/dL (8.5-10.1)
[2023-11-16 19:06] LABS: ALBUMIN 3.7 g/dl (3.4-5.0); BLOOD UREA NITROGEN 8.7 mg/dL (7-18)
[2023-11-16 19:09] LABS: CREATININE 1.2 mg/dL (0.55-1.3)
[2023-11-16 19:11] LABS: BILIRUBIN,TOTAL 0.4 mg/dL (0.2-1); TOT PROT 7.4 g/dl (6.4-8.2)
[2023-11-16 19:26] LABS: ANISOCYTOSIS 0; MACROCYTOSIS 0
[2023-11-16] MEDS ORDERED: CEPHALEXIN MONOHYDRATE 500 MG CAPSULE (UD) ONE (19:53)
[2023-11-16] MEDS: CEPHALEXIN MONOHYDRATE 500 MG CAPSULE (UD) PO ONE (19:58)
== END 2023-11-16 20:00 | disposition home or self-care (01) ==
LOC: JER 17:10
DX: R30.0 Dysuria (principal); N48.89 Other specified disorders of penis
CPT/HCPCS: 36415; 80053; 81003; 85025; 87086; 99283-25